=== PATIENT | female | born 1950 | race Caucasian/White ===

== ENCOUNTER 2020-12-30 20:05 | Inpatient (IN) | payer MEDICARE, MEDICAID ==
[~2020-12-30] VITALS: Ht 162.6 cm; Wt 101.3 kg
--- NOTE | 2020-12-30 20:29 | NUR ---
BIB [place]. PT HAD LEFT KNEE REPLACEMENT ON 12/19. YESTERDAY STARTED TO HAVE GENARALIZED WEAKNESS AND L ARM DEFICITS WITH CONFUSSION AND DIFFICULTY WITH SPEACH. WENT TO [facility] THIS AFTERNOON BUT WAS SENT HERE FOR CT. PAIN [facility]ANG AT 03/11 AND WHERE SHE HAD THE L KNEE REPLACEMENT 03/11 PAIN. PT ALSO HAS HX OF BIPOLAR FOR MANY YEARS. TAKES BUSIPRONE, DOXEPINE, GABAPENTIN, MOCLEZINE, SEROQUEL, TOPIRAMATE.
--- NOTE | 2020-12-30 20:35 | NUR ---
PROVIDER AT BEDSIDE DOING EVALUATION. PT STATES SLEPT ALL DAY YESTERDAY AND THAT IS NOT NORMAL BECAUSE SHE IS NORMALLY ACTIVE AND BECAUSE SHE HAS GASTRODIVERETICULITS AND ALSO HAS INCONTINENCE AND NORMALLY WAKES UP TO GO TO THE BATHROOM.
--- NOTE | 2020-12-30 21:01 | NUR ---
PT WENT TO CT.
--- NOTE | 2020-12-30 21:11 | NUR ---
PT BACK FROM CT.
[2020-12-30] MEDS ORDERED: ASPIRIN 81 MG TABLET CHEW PO ONE (21:30)
[2020-12-30] MEDS ORDERED: ASPIRIN 81 MG TABLET CHEW ONE (21:32)
--- NOTE | 2020-12-30 21:34 | NUR ---
Kathryn mcgregor in [facility] - 12/30/20 at 2139 by [email or web address] PT STATES HAS A BLADDER STIMULATOR THAT WAS PUT IN 2004.
--- NOTE | 2020-12-30 21:39 | NUR ---
PT STATES HAS A BLADDER STIMULATOR THAT WAS PUT IN JUNE 2018. PT THOUGHT WAS EARLY BUT HAS A CARD WITH IMPLANT DATE.
[2020-12-30] MEDS ORDERED: PLEASE ENTER ALLERGIES MC SCH (22:00)
[2020-12-30] MEDS ORDERED: SODIUM CHLORIDE FLUSH 10ML SYR IVF PRN (22:30)
--- NOTE | 2020-12-30 23:17 | NUR ---
REPORT GIVEN TO JIAN TRAVIS.
--- NOTE | 2020-12-30 23:17 | NUR ---
ERP NOTIFIED ABOUT HTN NOT CONCERENED AT THIS TIME.
[2020-12-30] MEDS ORDERED: ZOLPIDEM 5MG TABLET PO PRN (23:30)
[2020-12-30] MEDS ORDERED: ACETAMINOPHEN 650 MG/20.3 ML UDC PO PRN (23:30)
[2020-12-31] VITALS (10 sets, daily range): BP systolic 113–138; BP diastolic 73–85
[2020-12-31] MEDS ORDERED: QUET200T4 PO (02:27)
[2020-12-31] MEDS ORDERED: GABA-827 PO (02:27)
[2020-12-31] MEDS ORDERED: QUET400T4 PO (02:27)
[2020-12-31] MEDS ORDERED: OXYC5TAB2 PO (02:27)
[2020-12-31] MEDS ORDERED: TOPI200T25 PO (02:27)
[2020-12-31] MEDS ORDERED: MECL12.590 PO (02:27)
[2020-12-31] MEDS ORDERED: SUVO20TA PO (02:27)
[2020-12-31] MEDS ORDERED: NAPR-857 PO (02:27)
[2020-12-31] MEDS: HYDROcodone/APAP 5/325 TABLET PO PRN ×3 (04:04→15:51)
[2020-12-31] MEDS: ATORVASTATIN 80 MG TABLET PO SCH ×2 (04:06→21:55)
[2020-12-31] MEDS ORDERED: OMNIPAQUE 350 MG/ML, 100ML BOTTLE ONE (06:03)
[2020-12-31 06:17] LABS: CHOL/HDL RATIO 4.2; LDL/HDL RATIO 2.4 (0.5-3.0)
[2020-12-31 07:02] LABS: BASOPHILS % (AUTO) 1 % (0-1); EOSINOPHILS % (AUTO) 5 % (1-7); LYMPHOCYTES % (AUTO) 43 % (22-44); MEAN CORPUSCULAR HEMOGLOBIN 27.3 pg (27.0-34.8); MEAN CORPUSCULAR HGB CONC 32.2 g/dL (32.4-35.8); MEAN PLATELET VOLUME 7.2 fL (7.4-10.4); MONOCYTES % (AUTO) 7 % (2-9); NEUTROPHILS % (AUTO) 44 % (42-75); PLATELET COUNT 511 x10^3/uL (130-400); RED BLOOD COUNT 3.93 x10^6/uL (3.82-5.3); RED CELL DISTRIBUTION WIDTH 17.2 % (9.6-15.2)
[2020-12-31 07:09] LABS: ANION GAP 8 mmol/L (5-15); CALCIUM 9.2 mg/dL (8.5-10.1); CHLORIDE 109 mmol/L (98-107); CREATININE 1.15 mg/dL (0.55-1.02); MD NO
[2020-12-31] MEDS: ASPIRIN 81 MG TABLET CHEW PO/NG SCH (09:05)
[2020-12-31] MEDS: DOCUSATE 100 MG CAPSULE PO PRN ×2 (09:05→15:52)
[2020-12-31] MEDS ORDERED: POTASSIUM CHLORIDE 20 MEQ TAB.ER.PRT PO ONE (13:00)
[2020-12-31] MEDS ORDERED: QUETIAPINE 100MG TABLET PO SCH (21:30)
[2020-12-31] MEDS ORDERED: GABAPENTIN 300 MG CAPSULE PO SCH (21:30)
[2021-01-01 00:29] VITALS: BP 129/73
[2021-01-01] MEDS: HYDROcodone/APAP 5/325 TABLET PO PRN (01:24)
[2021-01-01 04:15] VITALS: BP 117/73
[2021-01-01 07:16] VITALS: BP 103/68
[2021-01-01] MEDS: ASPIRIN 81 MG TABLET CHEW PO/NG SCH (10:58)
[2021-01-01 12:26] VITALS: BP 103/72
== END 2021-01-01 17:36 | disposition home health service (06) | DRG 101 ==
LOC: ED 21:52 → EDIP 22:33 → 4EST 23:48
PROVIDERS: ADMIT Family Medicine; ATTEND Internal Medicine
DX: G40.209 Localization-related (focal) (partial) symptomatic epilepsy and epileptic syndromes with complex partial seizures, not intractable, without status epilepticus (principal); I50.32 Chronic diastolic (congestive) heart failure; R47.01 Aphasia; E66.01 Morbid (severe) obesity due to excess calories; G47.00 Insomnia, unspecified; I11.0 Hypertensive heart disease with heart failure; M19.90 Unspecified osteoarthritis, unspecified site; Z96.652 Presence of left artificial knee joint; Z68.38 Body mass index [BMI] 38.0-38.9, adult
CPT/HCPCS: 36415; 70450; 70496; 70498; 70551; 80048; 80061; 82962; 85025; 93306; 95819; G0378; Q9967; 92523-GN